=== PATIENT | female | born 1960 | race American Indian/Alaskan Native ===

== ENCOUNTER 2016-09-11 23:18 | Inpatient (IN) | payer OTHER ==
[2016-09-12] MEDS ORDERED: BENADRYL IV ONE (02:19)
[2016-09-12] MEDS ORDERED: PEPCID IV ONE (02:19)
--- NOTE | 2016-09-12 02:21 | Emergency Department Report ---
ED General Adult HPI - General Chief complaint: Allergic Reaction Stated complaint: LIP SWELLING Time Seen by Provider: 09/12/16 02:11 Source: patient, RN notes reviewed Mode of arrival: Ambulatory Limitations: No Limitations - History of Present Illness Initial comments: This is a 56-year-old female. She is previously unknown to me. She does not have a primary care doctor. The patient reports no history of chronic medical conditions. The patient presents to the ER complaining of lower lip swelling. It has been present for 24 hours. It is painless. There is no headache, neck pain, chest pain, abdominal pain or shortness of breath. Patient does not take prescription medications, the patient indicates this is happened to her in the past but has not been as severe swelling is constant. It has no exacerbating or relieving factors. -: Sudden Location: mouth Consistency: constant Improves with: none Worsens with: none Associated Symptoms: denies other symptoms, other (patient does complain of mild throat pain. There is no stridor, dysphonia, hoarse voice) ED Review of Systems ROS: Stated complaint: LIP SWELLING Other details as noted in HPI Constitutional: denies: fever ENT: throat pain. denies: dental pain, congestion Respiratory: denies: cough Cardiovascular: denies: chest pain Gastrointestinal: denies: abdominal pain, nausea, diarrhea Genitourinary: denies: urgency, dysuria, discharge Musculoskeletal: denies: back pain, joint swelling, arthralgia Skin: denies: rash, lesions Neurological: denies: headache Psychiatric: anxiety ED Past Medical Hx - Past Medical History Previous Medical History?: No - Surgical History Past Surgical History?: No - Social History Smoking Status: Never Smoker Substance Use Type: None ED Physical Exam - General Limitations: No Limitations General appearance: alert, in no apparent distress - Head Head exam: Present: atraumatic, normocephalic - Eye Eye exam: Present: normal appearance, EOMI - ENT ENT exam: Present: normal orophraynx, mucous membranes moist, normal external ear exam, other (patient has very impressive swelling of the inferior lower lip. There is no stridor or dysphonia. The patient is speaking in full sentences.) - Neck Neck exam: Present: normal inspection, full ROM. Absent: tenderness, meningismus - Respiratory Respiratory exam: Present: normal lung sounds bilaterally. Absent: respiratory distress, wheezes, rales, rhonchi, stridor, chest wall tenderness, accessory muscle use, decreased breath sounds, prolonged expiratory - Cardiovascular Cardiovascular Exam: Present: normal rhythm, bradycardia, normal heart sounds. Absent: systolic murmur, diastolic murmur, rubs, gallop - GI/Abdominal GI/Abdominal exam: Present: soft, normal bowel sounds. Absent: distended, tenderness, guarding, rebound, rigid, pulsatile mass - Extremities Exam Extremities exam: Present: normal inspection, full ROM, normal capillary refill. Absent: tenderness, pedal edema, joint swelling, calf tenderness - Back Exam Back exam: Present: normal inspection, full ROM. Absent: tenderness, CVA tenderness (R), CVA tenderness (L), muscle spasm, paraspinal tenderness, vertebral tenderness - Neurological Exam Neurological exam: Present: alert, oriented X3, normal gait, other (Extraocular movements intact. Tongue midline. No facial droop. Facial sensation intact to light touch in the V1, V2, V3 distribution bilaterally. 5 and 5 strength in 4 extremities.. Sensation is intact to light touch in 4 extremities.). Absent : motor sensory deficit - Psychiatric Psychiatric exam: Present: normal affect, normal mood - Skin Skin exam: Present: warm, dry, intact, normal color. 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 She is afebrile, speaking in full sentences, with no stridor or dysphonia, and protecting her airway. She is also found to be incidentally hypertensive. She is treated with Pepcid, Benadryl, steroids, hydralazine. The patient will be admitted for blood pressure control and airway observation. The case is discussed with the Hospital physician, Dr. Rivera, who accepts the patient to her service. A complement level was sent, I will defer to the inpatient team to follow this up. ED Medical Decision Making - Lab Data Result diagrams: 09/12/16 02:12 09/12/16 02:12 Vital Signs 09/12/16 09/12/16 09/12/16 00:22 02:46 03:00 Temperature 98.5 F Pulse Rate 53 L 55 L Respiratory 16 14 12 Rate Blood Pressure 184/90 Blood Pressure 218/98 [Left] O2 Sat by Pulse 100 98 Oximetry 09/12/16 09/12/16 04:20 04:21 Temperature Pulse Rate 61 61 Respiratory 14 Rate Blood Pressure 216/94 Blood Pressure 216/94 [Left] O2 Sat by Pulse 98 Oximetry Lab Results 09/12/16 09/12/16 09/12/16 Range/Units 02:12 02:12 02:12 WBC 6.0 (4.5-11.0) K/mm3 RBC 2.40 L (3.65-5.03) M/mm3 Hgb 10.4 (10.1-14.3) gm/dl Hct 30.2 L (30.3-42.9) % MCV 126 H (79-97) fl MCH 44 H (28-32) pg MCHC 35 H (30-34) % RDW 15.8 H (13.2-15.2) % Plt Count 346 (140-440) K/mm3 Add Manual Diff Complete Total Counted 100 Seg Neuts % (Manual) 69.0 (40.0-70.0) % Band Neutrophils % 0 % Lymphocytes % (Manual) 30.0 (13.4-35.0) % Reactive Lymphs % (Man) 0 % Monocytes % (Manual) 0 (0.0-7.3) % Eosinophils % (Manual) 1.0 (0.0-4.3) % Basophils % (Manual) 0 (0.0-1.8) % Metamyelocytes % 0 % Myelocytes % 0 % Promyelocytes % 0 % Blast Cells % 0 % Nucleated RBC % Not Reportable Seg Neutrophils # Man 4.1 (1.8-7.7) K/mm3 Band Neutrophils # 0.0 K/mm3 Lymphocytes # (Manual) 1.8 (1.2-5.4) K/mm3 Abs React Lymphs (Man) 0.0 K/mm3 Monocytes # (Manual) 0.0 (0.0-0.8) K/mm3 Eosinophils # (Manual) 0.1 (0.0-0.4) K/mm3 Basophils # (Manual) 0.0 (0.0-0.1) K/mm3 Metamyelocytes # 0.0 K/mm3 Myelocytes # 0.0 K/mm3 Promyelocytes # 0.0 K/mm3 Blast Cells # 0.0 K/mm3 WBC Morphology Not Reportable Hypersegmented Neuts Not Reportable Hyposegmented Neuts Not Reportable Hypogranular Neuts Not Reportable Smudge Cells Not Reportable Toxic Granulation Not Reportable Toxic Vacuolation Not Reportable Dohle Bodies Not Reportable Pelger-Huet Anomaly Not Reportable Donna Rods Not Reportable Platelet Estimate Consistent w auto Clumped Platelets Not Reportable Plt Clumps, EDTA Not Reportable Large Platelets Not Reportable Giant Platelets Not Reportable Platelet Satelliting Not Reportable Plt Morphology Comment Not Reportable RBC Morphology Not Reportable Dimorphic RBCs Not Reportable Polychromasia Not Reportable Hypochromasia Not Reportable Poikilocytosis Not Reportable Anisocytosis 1+ Microcytosis Not Reportable Macrocytosis 3+ Spherocytes Not Reportable Pappenheimer Bodies Not Reportable Sickle Cells Not Reportable Target Cells Not Reportable Tear Drop Cells Not Reportable Ovalocytes Not Reportable Helmet Cells Not Reportable [place] Bodies Not Reportable [place] Rings Not Reportable Nicol Cells Not Reportable Bite Cells Not Reportable Crenated Cell Not Reportable Elliptocytes Not Reportable Acanthocytes (Spur) Not Reportable Rouleaux Not Reportable Hemoglobin C Crystals Not Reportable Schistocytes Not Reportable Malaria parasites Not Reportable [place] Bodies Not Reportable Hem Pathologist Commnt No PT 13.4 (12.2-14.9) Sec. INR 1.03 (0.87-1.13) APTT 30.7 (24.2-36.6) Sec. Sodium 142 (137-145) mmol/L Potassium 4.1 (3.6-5.0) mmol/L Chloride 104.1 (98-107) mmol/L Carbon Dioxide 23 (22-30) mmol/L Anion Gap 19 mmol/L BUN 13 (7-17) mg/dL Creatinine 0.5 L (0.7-1.2) mg/dL Estimated GFR > 60 ml/min BUN/Creatinine Ratio 26.00 % Glucose 99 (65-100) mg/dL Calcium 9.4 (8.4-10.2) mg/dL Critical care attestation.: If time is entered above; I have spent that time in minutes in the direct care of this critically ill patient, excluding procedure time. ED Disposition Clinical Impression: Angioedema, Hypertensive urgency Disposition: OP ADMITTED IP TO THIS HOSP Is pt being admited?: Yes Condition: Good
[2016-09-12 02:43] LABS: Hematocrit 30.2 % (30.3-42.9); Hemoglobin 10.4 gm/dl (10.1-14.3); Mean Corpuscular HGB Conc 35 % (30-34); Mean Corpuscular Hemoglobin 44 pg (28-32); Platelet Count 346 K/mm3 (140-440); Red Cell Distribution Width 15.8 % (13.2-15.2)
[2016-09-12 02:53] LABS: INR 1.03 (0.87-1.13)
[2016-09-12 02:54] LABS: Partial Thromboplastin Time 30.7 Sec. (24.2-36.6)
[2016-09-12 03:07] LABS: Mean Corpuscular Volume 126 fl (79-97)
[2016-09-12 03:10] LABS: Anion Gap 19 mmol/L; Blood Urea Nitrogen 13 mg/dL (7-17); Calcium 9.4 mg/dL (8.4-10.2); Carbon Dioxide 23 mmol/L (22-30); Chloride 104.1 mmol/L (98-107); Glucose 99 mg/dL (65-100); Potassium 4.1 mmol/L (3.6-5.0); Sodium 142 mmol/L (137-145)
[2016-09-12 03:57] LABS: Basophils % (Manual) 0 % (0.0-1.8); Blastocytes % (Manual) 0 %
[2016-09-12 03:59] LABS: Macrocytosis 3+
[2016-09-12 04:00] LABS: Anisocytosis 1+; Diff Status Complete; Platelet Estimate Consistent w Auto
[2016-09-12] MEDS ORDERED: APRESOLINE IV ONE (04:02)
[2016-09-12] MEDS ORDERED: MILK OF MAGNESIA PO PRN ×2 (06:05→07:17)
[2016-09-12] MEDS ORDERED: DULCOLAX PR PRN ×2 (06:05→07:17)
[2016-09-12] MEDS ORDERED: ZOFRAN IV PRN ×2 (06:05→07:17)
[2016-09-12] MEDS ORDERED: APRESOLINE IV PRN ×2 (06:05→07:17)
[2016-09-12] MEDS ORDERED: TYLENOL PO PRN (06:05)
--- NOTE | 2016-09-12 06:11 | History and Physical Report ---
History of Present Illness Date of examination: 09/12/16 History of present illness: 56-year-old woman with no medical history comes emergency room with swelling of her lip which started yesterday morning. She stated that she has not had any new food.. Her symptoms worsen starting in the afternoon and so she came to the emergency room for further evaluation. She has no difficulty swallowing, no shortness of breath Patient denies chest pain, palpitation, shortness of breath, cough, abdominal pain, hematochezia, dysuria, frequency, focal weakness, dysarthria, fever chills , polydipsia polyuria, hot or cold intolerance, easy bruisability, or rash or bleeding from mucosal membrane, rhinorrhea, epistaxis, earache, tinnitus, blurry vision, eye discharge, anxiety, depression. Other review of systems negative PAST SURGICAL HISTORY: None SOCIAL HISTORY: Denies alcohol, tobacco, drugs FAMILY HISTORY: Hypertension Exam - Physical Exam Narrative exam: Gen. appearance: Patient lying in bed, no apparent distress HEENT: Normocephalic, atraumatic, pupils equally round and reactive to light, extraocular movement intact, and no sclericterus,. No JVD or thyromegaly or nodule,neck supple, no carotid bruit ,mucous membranes moist, no exudate or erythema Heart: S1, S2, regular rate and rhythm Lungs: Clear to auscultation bilaterally, breathing comfortable Abdomen: Positive bowel sounds, nontender, nondistended, no organomegaly Extremity: No edema, cyanosis, clubbing Skin: No rash, nodules, warm, dry Neuro: Oriented 3, cranial nerves II-12 intact, speech is fluent, motor and sensory intact - Constitutional Vitals: Temp Pulse Resp BP Pulse Ox 98.5 F 58 L 14 185/78 98 09/12/16 00:22 09/12/16 04:32 09/12/16 04:32 09/12/16 04:32 09/12/16 04:32 Results - Labs CBC & Chem 7: 09/12/16 02:12 09/12/16 02:12 Labs: Abnormal lab results 09/12/16 09/12/16 Range/Units 02:12 02:12 RBC 2.40 L (3.65-5.03) M/mm3 Hct 30.2 L (30.3-42.9) % MCV 126 H (79-97) fl MCH 44 H (28-32) pg MCHC 35 H (30-34) % RDW 15.8 H (13.2-15.2) % Creatinine 0.5 L (0.7-1.2) mg/dL Assessment and Plan Angioedema, unknown etiology Hypertension malignant, new onset Admits medicine Start IV high-dose steroids, IV Benadryl, IV Pepcid Start IV hydralazine for blood pressure control, Lopressor Start DVT prophylaxis
[2016-09-12] MEDS ORDERED: BENADRYL IV SCH (07:00)
--- NOTE | 2016-09-12 07:51 | Admit Criteria Form ---
Admission Criteria Documentation: HYPERTENSION Clinical Indications for Admission to Inpatient Care ( Place "X" for any and all applicable criteria): Admission is indicated for ANY ONE of the following(1)(2)(3)(4): [ ]I. Hypertensive emergency, with evidence of acute and progressing target organ disease as indicated by ANY ONE of the following: [ ]a) Hypertensive encephalopathy (eg, confusion, altered mental status) [ ]b) Cerebral infarction [ ]c) Intracranial hemorrhage [ ]d) Myocardial ischemia or infarction [ ]e) Pulmonary edema [ ]f) Aortic dissection [ ]g) Seizure [ ]h) Acute renal insufficiency [ ]i) Papilledema [ ]j) Microangiopathic hemolytic anemia [ ]II. Adrenergic crisis (eg, severe hypertension due to pheochromocytoma crisis, cocaine or amphetamine intoxication, or clonidine withdrawal) [X]III. Severe hypertension (SBP greater than 180 mmHg or DBP greater than 110 mmHg or greater than the 95th percentile for age, gender, and height in pediatric patients) that cannot be controlled (eg, to SBP less than 160 mmHg and DBP less than 100 mmHg in adults) by treatment with oral medication in emergency department or observation care Extended stay beyond goal length of stay may be needed for(11)(12)(13): [ ]a) Persistent hypertensive encephalopathy [ ]b) Continuation of pulmonary edema [ ]c) Recurring or persistent severe hypertension [ ]d) Target organ damage (eg, angina, stroke, aortic dissection) [ ]e) Associated renal insufficiency The original [employer] content created by [employer] has been revised. The portions of the content which have been revised are identified through the use of italic text or in bold, and [facility] has neither reviewed nor approved the modified material. All other unmodified content is copyright [facility]. Please see references footnoted in the original [facility] edition 2016 Admission Criteria Met: Yes
--- NOTE | 2016-09-12 09:11 | Event Note ---
Date: 09/12/16 Patient just admitted 2 hours ago with a chief complaint of facial lip swelling. Patient had allergic reaction of unknown source. Patient was not aware of anything she came in contact with or ate or was allergic to that caused the reaction. At present patient is much improved. Only lip swelling. No difficulty swallowing no swollen periorbital edema. No increased secretions no anxiety no shortness of breath no differential exertion no difficulty breathing no stridor. Oral pharynx looks excellent with without swelling and adenoids. Patient responded to steroid-induced Benadryl. Patient also admitted for malignant hypertension was initially started on hydralazine and Lopressor and has had significant success. Patient should be able to go home in the morning and further titrate her blood pressure as well as steroidal taper for discharge and follow-up with her primary care physician.
[2016-09-12] MEDS ORDERED: LOVENOX SUB-Q SCH (10:00)
[2016-09-12] MEDS ORDERED: LOPRESSOR PO SCH (10:00)
[2016-09-12] MEDS ORDERED: PEPCID IV SCH (10:00)
[2016-09-12] MEDS ORDERED: LOPRESSOR ONE (10:02)
[2016-09-12] MEDS: PEPCID IV SCH ×2 (10:15→21:54)
[2016-09-12] MEDS: LOVENOX SUB-Q SCH (10:16)
[2016-09-12] MEDS: LOPRESSOR PO SCH ×2 (10:20→21:54)
[2016-09-12] MEDS ORDERED: WATER FOR INJ (PF) 10 ML ONE ×2 (12:02→17:14)
[2016-09-12] MEDS: BENADRYL IV SCH ×3 (12:06→23:51)
[2016-09-13] MEDS: BENADRYL IV SCH (05:22)
[2016-09-13] MEDS: LOPRESSOR PO SCH (09:51)
[2016-09-13] MEDS: PEPCID IV SCH (09:52)
[2016-09-13] MEDS: LOVENOX SUB-Q SCH (09:52)
[2016-09-13 09:53] VITALS: BP 142/73
--- NOTE | 2016-09-13 10:14 | Discharge Summary ---
Providers - Providers Date of Admission: 09/12/16 06:05 Date of discharge: 09/13/16 Attending physician: RENA PAK Primary care physician: KIMBER HDZ MD Hospitalization Condition: Good Disposition: DC-01 TO HOME OR SELFCARE - Discharge Diagnoses (1) Angioedema Status: Acute Qualifiers: Encounter type: E (2) Hypertensive urgency Status: Acute Exam - Constitutional Vitals: Temp Pulse Resp BP Pulse Ox 98.3 F 62 18 142/73 100 09/13/16 09:52 09/13/16 09:52 09/13/16 09:52 09/13/16 09:52 09/13/16 09:52 Plan Activity: no restrictions Diet: low fat, low cholesterol, low salt Additional Instructions: 1.Follow up with PCP in 1 week Follow up with: PRIMARY CARE, [Primary Care Provider] - 3-5 Days Prescriptions: amLODIPine [Norvasc] 5 mg PO DAILY #30 tab diphenhydrAMINE [Benadryl CAP] 25 mg PO Q8HR #10 capsule Famotidine [Pepcid] 20 mg PO BID #30 tablet Prednisone [predniSONE 5 mg (6-Day Pack, 21 Tabs)] 5 mg PO .TAPER #1 tab.ds.pk
[2016-09-13] MEDS ORDERED: FLUARIX QUAD 2016-2017(36 MOS+) IM ONE (12:00)
--- NOTE | 2016-09-14 07:39 | Admit Criteria Form ---
Admission Criteria Documentation: HEAD AND NECK DISEASE [facility] Clinical Indications for Admission to Inpatient Care ( Place 'X' for any and all applicable criteria): Hospital admission is needed for appropriate care of the patient because of ANY ONE of the following (1)(2): [ ]I. Severe sinusitis as indicated by ANY ONE of the following (6)(13)(21) [ ]a) Suspected UNIX ADMINISTRATOR infection [ ]b) Bacteremia [ ]c) Hemodynamic instability [ ]d) Outpatient and observation care antibiotic treatment have failed or are not considered appropriate [ ]e) Surgical drainage needed that cannot be performed on an outpatient basis or observation. setting [ ]f) Suspected orbital involvement [ ]II. Acute glaucoma unresponsive to emergency treatment that requires medication or other treatment beyond the scope of observation care (1) [ ]III. Severe eye infection or inflammation (eg, uveitis) which is unresponsive to emergency treatment and requires medication or other treatment beyond the scope of observation care (1)(2)(3)(4) [ ]IV. Severe epistaxis requiring posterior packing (5)(6) [ ]V. Acute bacterial labyrinthitis(6)(7) [ ]. Viral labyrinthitis with symptoms uncontrollable on an outpatient or observation care basis (6)(7) [ ]VII. Severe necrotizing external otitis unresponsive to outpatient and observation care treatment(6) [ ]VIII. Otitis media requiring treatment beyond the scope of outpatient and observation care, as indicated by presence or persistence of ANY ONE of the following(6)(8)(9): [ ]a) Hemodynamic instability [ ]b) Mastoiditis [ ]c) Suspected UNIX ADMINISTRATOR infection [ ]d) Bacteremia [ ]e) Surgical drainage needed that cannot be performed as an outpatient. or in an observation setting. [ ]IX. Epiglottitis or supraglottitis(6)(11)(12)(13)(14) [ ]X. Stridor or laryngospasm (unresponsive to emergency management) (6)(11)( 12)(13)(14) [ ]XI. Acute pharyngitis or tonsillitis and ANY ONE of the following (14)(15)( 16): [ ]a) Hemodynamic instability remaining after emergency or observation level care (as appropriate) [ ]b) Surgical drainage needed that cannot be performed in outpatient or observation setting [ ]c) Mediastinitis [ ]d) Thrombophlebitis of internal jugular vein (Lemierre syndrome) [ ]XII. Sialoadenitis and ANY ONE of the following (17) (18) [ ]a) Hemodynamic instability remaining after emergency or observation level care(as appropriate) [ ]b) Surgical drainage needed that cannot be performed in outpatient or observation setting [ ]XIII. Airway blockage or inability to swallow (6)(12)(19)(20) [ ]XIV.Complicated infection indicated by ANY ONE of the following(6)(13)(21)(22 ): [ ]a) Abscess or swelling causing airway difficulty(12) [ ]b) Bacteremia [ ]c) Hemodynamic instability [ ]d) Suspected UNIX ADMINISTRATOR infection [ ]e) Outpatient and observation care antibiotic treatment have failed or are not considered appropriate [ ]f) Surgical drainage needed that cannot be performed on an outpatient basis or observation setting [ ]g) Other management need that cannot be performed in outpatient or observation setting: [ ]XV. Severe trauma requiring inpatient medical treatment of eye, head, pharynx, or airway (1)([phone]) [ ]XVI. Ischemic optic neuropathy(11) [X ]XVII.Head or Neck Disease condition and ANY ONE of the following: [ X]a) Symptom or finding for which emergency and observation care have failed or are not considered appropriate (Also use General Criteria: Observation Care as appropriate) [ ]b) Presence of ANY ONE of the following: [ ]i) A General Admission Criteria [ ]ii) A Pediatric General Admission Criteria The original [facility] content created by [facility] has been revised. The portions of the content which have been revised are identified through the use of italic text or in bold, and [facility] has neither reviewed nor approved the modified material. All other unmodified content is copyright [facility]. Please see references footnoted in the original [facility] edition 2016 Admission Criteria Met: Yes
== END 2016-09-13 12:08 | disposition home or self-care (01) | DRG 916 ==
LOC: ED 23:18 → 4A 09-12 06:05 → ED 09-12 06:12 → 4A 09-12 10:13
PROVIDERS: ADMIT Internal Medicine; ATTEND Internal Medicine
PROC: 3E0234Z Introduction of Serum, Toxoid and Vaccine into Muscle, Percutaneous Approach (ICD-10-PCS; principal; 2016-09-12)
DX: T78.3XXA Angioneurotic edema, initial encounter (principal); I16.0 Hypertensive urgency; I10 Essential (primary) hypertension; Z23 Encounter for immunization; Z82.49 Family history of ischemic heart disease and other diseases of the circulatory system
CPT/HCPCS: 36415; 80048; 85007; 85025; 85610; 85730; 86160; 90686; 96372; 96374; 96375; 99285; J0360; J1200; J1650; J2930